=== PATIENT | female | born 2000 | race Caucasian/White ===

== ENCOUNTER 2025-03-05 21:43 | Emergency (ER) | payer OTHER, SELFPAY ==
[2025-03-05 21:44] VITALS: BP 124/75; PULSE 85; RESP 20; TEMP 36.9; O2SAT 100
--- OUTSIDE RECORDS SUMMARY | 2025-03-05 21:45 | XMS_ITS | Clinical Summary ---
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 screened with the use of an image guided system. Note Comment 08/29/2023 11:10 AM [employer]TER [facility] ([facility]) Comment: The HPV DNA reflex criteria were not met with this specimen result therefore, no HPV testing was performed. Pathology/Cytolo gy ENTIRE ENDOCERVIX / Unknown Collection / Unknown 08/26/2023 2:55 PM [employer]TER 08/26/2023 3:02 PM [employer]TER Narrative [facility] ([facility]) - 08/29/2023 11:10 AM [employer]TER Performed at: [address] [place] [address] [id number] Bonding Equipment Operator: Idalia Reddy MD, Phone: [phone] Specimen Comment: No. of containers..01 ThinPrep Vial Lyudmila Boudreaux MD LAB - PATHOLOGY/CYTOLOGY ORDERA BLES Final Result [facility] ([facility]) [address] [place] [phone] from Last 3 Months or Most Recently Relevant to Health Maintenance [facility]
[2025-03-05 22:25] LABS: Add Urine Microscopic? YES; Appearance Urine Clear (Clear); Glucose Urine UA Negative (Negative); Leukocyte Esterase Ur Trace LEU/UL (Negative); Nitrate Urine Negative (Negative); Non Pathogenic Casts 0-2; Specific Grav Ur 1.003 (1.001-1.035)
--- OUTSIDE RECORDS SUMMARY | 2025-03-05 23:52 | XMS_ITS | Clinical Summary ---
Author Organization [facility] Address [address] [place] [address] Care Team Providers Care Belt Splicer Name Role Phone Unavailable Primary Care Provider Unavailabl e Source Comments [facility],non-owned Affiliates and Associated Physician Practices is amultiple site organization consisting of ambulatory clinics and hospital sitesin [place], [place], [place] and [place]. This disclosure is being madepursuant to the Care Everywhere program and may not contain all information available regarding this patient. Last updated 18.[facility] Allergies Active Allergy Reactions Criticality Noted Date [...] migh t be different from the original. [employer] form completed. Diapers given. 03/02/2025 [...] - 03/02/2025 11:59 PM CDT Hospital Encounter [facility] MATERNAL/ EVALUATION UNIT [address] [place] [address] Bev Blevins, ENTRY LEVEL PROJECT ENGINEER-JAVA PROGRAMMER Discharge Disposition: Home or Self Care 03/02/2025 Travel 02/15/2025 Patient Outreach [facility] [address] [place] [address] Socorro Ivey RN Care Management Other (Called pt to follow up on resources sent for SDIA needs. Pt states she moved into a new place a week ago. Stable housing and all bills are current. Has SNAP and WIC and denies food insecurity. Get transportation from her [id number]. Looking for a second vehicle. Denies increased stress level. Says things are going well overall. Has gotten a car seat through her insurance and another one from a family member that converts into a stroller. Still looking for a crib. Denies needing any addition) 02/02/2025 12:41 PM CDT - 02/02/2025 11:59 PM CDT Hospital Encounter [facility] MATERNAL/ EVALUATION UNIT [facility] [address] [place] [address] Kael Mcmanus MD Discharge Disposition: Home or Self Care 02/02/2025 12:41 PM CDT - 02/02/2025 11:59 PM CDT Hospital Encounter [facility] MATERNAL/ EVALUATION UNIT [facility] [address] [place] [address] Bev Blevins APRN-CNP Discharge Disposition: Home or Self Care 02/02/2025 Travel 01/05/2025 12:28 PM CDT - 01/05/2025 11:59 PM CDT Hospital Encounter [facility] MATERNAL/ EVALUATION UNIT [facility] [address] [place] [address] Bev Blevins APRN-CNP Discharge Disposition: Home or Self Care 01/05/2025 12:25 PM CDT - 01/05/2025 12:27 PM CDT Hospital Encounter [facility] MATERNAL/ EVALUATION UNIT [facility] [address] [place] [address] Bev Blevins, ENTRY LEVEL PROJECT ENGINEER-JAVA PROGRAMMER Obi Tello MD Discharge Disposition: Home or Self Care 01/05/2025 Travel 12/15/2024 12:34 PM CDT - 12/15/2024 11:59 PM CDT Hospital Encounter [facility] MATERNAL/ EVALUATION UNIT [address] [place] [address] Alexandrea Lewis MD Discharge Disposition: Home or Self Care 12/15/2024 Patient Outreach [facility] MATERNAL/ EVALUATION UNIT [address] [place] [address] Hali Holm, RN Care Management Other (Spoke w/Nehemias @ her 16.3 week to follow up on the resources/referrals provided by the [facility] team. She received the information & [...] time but will reach out to the [facility] team for any changes.) 12/15/2024 Travel [...] Recorded Patient Health Questionnaire-2 Score 5 12/11/2023 [facility] [place] [facility] Occupat ional Health - Occupational Stress [...] things needed for daily living? Yes 03/02/2025 [place] Depression Scale Answer Date Recorded [place] Depression Scale Total 0 10/20/2024 The thought [...] any time in the past 12 m [facility], were you homeless or living in a snf (including now)? No 03/02/2025 Estimated Date of Delivery Comme nts Yes 05/29/2025 Based on last me nstrual period of 08/22/2024 Sex and Gender Information Value Date Recorded Sex Assigned at Female 08/28/2023 2:40 AM WAX ROOM SUPERVISOR Legal Sex Female 9:16 AM WAX ROOM SUPERVISOR Gender Identity Female 08/28/2023 2:40 AM WAX ROOM SUPERVISOR Sexual Orientation Bisexual 08/28/2023 2: 40 AM WAX ROOM SUPERVISOR Last Filed Vital Signs Vital Sign Reading Time Taken Comments Blood Pressure 145/88 03/02/2025 12:43 PM CDT Pulse 73 03/02/2025 12:43 PM CDT Temperature 36.6 C (97.9 F) 10/06/2024 12:15 PM WAX ROOM SUPERVISOR Respiratory Rate 16 02/02/2025 12:48 PM CDT Oxygen Saturation 97% 10/06/2024 12:15 PM WAX ROOM SUPERVISOR Inhaled Oxygen Concentration - - Weight 62.2 kg (137 lb 3.2 oz) 03/02/2025 12:35 PM CDT Height 167.6 cm (5' 6) 07/01/2024 9:24 AM WAX ROOM SUPERVISOR Body Mass Index 22.14 07/01/2024 9:24 AM WAX ROOM SUPERVISOR Plan of Treatment Upcoming Encounters Date Type Department Care Team (Late st Contact Info) Description 03/16/2025 1:00 PM CDT Appointment [facility] MATERNAL/ EVALUATION UNIT [address] [place] [address]. [address] [place] [address] 03/22/2025 10:40 AM CDT Appointment [facility] [address] [place] [address] [address] [place] [address] 03/29/2025 10:40 AM CDT Appointment [facility] [address] [place] [address] [address] [place] [address] 04/05/2025 10:40 AM CDT Appointment [facility] [address] [place] [address] Health Maintenance Due Date Last Done Comments [...] HPV APTIMA ASCU Routine 08/26/2023 2:55 PM WAX ROOM SUPERVISOR Well woman exam with routine gynecological exam from Last 3 Months or Most Recently Relevant to Health Maintenance Results * PROTEIN CREATININE RATIO URINE RANDOM PNL (03/02/2025 1:09 PM CDT) Protein Urine <6.8 <11.9 mg/dL 03/02/2025 2:13 PM CDT [facility] Creatinine Urine 25.20 mg/dL 03/02/2025 2:13 PM CDT [facility] Protein/Creatin ine Ratio Urine 03/02/2025 2:13 PM CDT [facility] Comment:Unable to calculate due to limited levels of measurable protein. Urine URINE SPECIMEN OBTAINED BY CLEAN CATCH PROCEDURE / Unknown Collection / Unknown 03/02/2025 1:09 PM CDT 03/02/2025 1:47 PM CDT Result [facility] Bev Blevins APRN-JAVA PROGRAMMER LAB - URINE CHEMISTR Y ORDERABLES Final Result [facility] [address] [place] [address] * SYPHILIS ANTIBODY CASCADING REFLEX (03/02/2025 1:08 PM CDT) Treponema pallidum Antibody Non Reactive Non Reactive 03/02/2025 2:38 PM CDT [facility] Comment: No Laboratory evidence of syphilis infection. Note: Circulating antibodies may be low or undetectable in early infection. If recent exposure is suspected, re-draw sample in 2-4 weeks and repeat testing. Blood BLOOD SPECIMEN / Unknown Venipuncture / Unknown 03/02/2025 1:08 PM CDT 03/02/2025 1:41 PM CDT Bev Blevins APRN-JAVA PROGRAMMER LAB - SEROLOGY ORDER GA Final Result Performing Organization Address [facility]/ZIP Co de Phone Number [facility] [address] [place] [address] * HIV-1 HIV-2 ANTIBODY + HIV P24 AG PANEL (03/02/2025 1:08 PM CDT) [facility] HIV1/2 Ab + P24 Ag Non Reactive Non Reactive 03/02/2025 2:31 PM CDT [facility] Blood BLOOD SPECIMEN / Unknown Venipuncture / Unknown 03/02/2025 1:08 PM CDT 03/02/2025 1:41 PM CDT Narrative [facility] - 03/02/2025 2:31 PM CDT No Laboratory evidence of HIV infection. Bev Blevins APRN-[facility] LAB - CHEMISTRY ORDE RABLES Final Result Performing Organization Address [facility] Co de Phone Number [facility] [address] [place] [address] * (ABNORMAL) CBC W AUTO DIFFERENTIAL (03/02/2025 1:08 PM CDT) [facility] WBC 10.4 4.0 - 10.7 x10E9/L 03/02/2025 1:55 PM CDT [facility] RBC Count 3.31(L) 3.90 - 5.20 x10E12/L 03/02/2025 1:55 PM CDT [facility] Hemoglobin 9.9(L) 11.9 - 15.8 g/dL 03/02/2025 1:55 PM CDT [facility] Hematocrit 29.1(L) 34.8 - 46.1 % 03/02/2025 1:55 PM CDT [facility] MCV 87.9 80.0 - 98.0 fL 03/02/2025 1:55 PM CDT [facility] MCH 29.9 26.7 - 33.6 pg 03/02/2025 1:55 PM CDT [facility] MCHC 34.0 31.7 - 36.3 g/dL 03/02/2025 1:55 PM CDT [facility] RDW-CV 13.1 11.3 - 14.8 % 03/02/2025 1:55 PM CDT [facility] Platelet Count 250 150 - 420 x10E9/L 03/02/2025 1:55 PM CDT [facility] MPV 10.9 7.8 - 11.4 fL 03/02/2025 1:55 PM CDT [facility] Neutrophil % 76.7(H) 41.0 - 74.0 % 03/02/2025 1:55 PM CDT [facility] Lymphocyte % 15.5(L) 17.0 - 47.0 % 03/02/2025 1:55 PM CDT [facility] Monocyte % 6.2 3.0 - 11.0 % 03/02/2025 1:55 PM CDT [facility] Eosinophil % 0.3 0.0 - 7.0 % 03/02/2025 1:55 PM CDT [facility] Basophil % 0.2 0.0 - 1.6 % 03/02/2025 1:55 PM CDT [facility] Immature Granulocytes % 1.1(H) 0.0 - 1.0 % 03/02/2025 1:55 PM CDT [facility] Neutrophil Absolute 7.95(H) 1.60 - 7.50 x10E9/L 03/02/2025 1:55 PM CDT [facility] Lymphocyte Absolute 1.61 1.00 - 4.40 x10E9/L 03/02/2025 1:55 PM CDT [facility] Monocyte Absolute 0.64 0.15 - 1.00 x10E9/L 03/02/2025 1:55 PM CDT [facility] Eosinophil Absolute 0.03 0.00 - 0.60 x10E9/L 03/02/2025 1:55 PM CDT [facility] Basophil Absolute 0.02 0.00 - 0.13 x10E9/L 03/02/2025 1:55 PM CDT [facility] Blood BLOOD SPECIMEN / Unknown Venipuncture / Unknown 03/02/2025 1:08 PM CDT 03/02/2025 1:41 PM CDT Bev Blevins APRN-JAVA PROGRAMMER LAB - HEMATOLOGY ORD ERABLES Final Result [facility] [address] [place] [address] * (ABNORMAL) COMPREHENSIVE METABOLIC PANEL (03/02/2025 1:08 PM CDT) Glucose 87 70 - 99 mg/dL 03/02/2025 2:18 PM CDT [facility] Sodium 135(L) 136 - 145 mmol/L 03/02/2025 2:18 PM CDT [facility] Potassium 3.1(L) 3.5 - 5.1 mmol/L 03/02/2025 2:18 PM CDT [facility] Chloride 104 98 - 107 mmol/L 03/02/2025 2:18 PM CDT [facility] CO2 23 22 - 29 mmol/L 03/02/2025 2:18 PM CDT [facility] Calcium 9.5 8.4 - 10.4 mg/dL 03/02/2025 2:18 PM CDT [facility] Anion Gap 8 6 - 16 mmol/L 03/02/2025 2:18 PM CDT [facility] BUN 3(L) 5.3 - 18.7 mg/dL 03/02/2025 2:18 PM CDT [facility] Creatinine 0.65 0.57 - 1.11 mg/dL 03/02/2025 2:18 PM CDT [facility] Alkaline Phosphatase 70 40 - 150 U/L 03/02/2025 2:18 PM CDT [facility] ALT 8 6 - 57 U/L 03/02/2025 2:18 PM CDT [facility] AST 19 10 - 48 U/L 03/02/2025 2:18 PM CDT [facility] Protein Total 6.8 6.4 - 8.3 gm/dL 03/02/2025 2:18 PM CDT [facility] Albumin 3.4 3.1 - 4.5 gm/dL 03/02/2025 2:18 PM CDT [facility] Bilirubin Total 0.2 0.2 - 1.2 mg/dL 03/02/2025 2:18 PM CDT [facility] eGFR by CKD-EPI >90 >=90 mL/min/1.7 3 m2 03/02/2025 2:18 PM CDT [facility] Comment:Estimated Glomerular Filtration Rate (eGFR) calculated using the CKD-EPI Creatinine Equation (2020), per the National Kidney Foundation and [place] Society of Nephrology recommendations. Blood BLOOD SPECIMEN / Unknown Venipuncture / Unknown 03/02/2025 1:08 PM CDT 03/02/2025 1:41 PM CDT Bev JOHN LAB - CHEMISTRY ORDE RABLIZBETH Final Result Performing Organization Address City/[facility]/ZIP Co de Phone Number [facility] [address] [place] [address] * GLUCOSE CHALLENGE (03/02/2025 1:08 PM CDT) [facility] Glucose Challenge 87 64 - 140 mg/dL 03/02/2025 2:19 PM CDT [facility] Glucose Challenge Time 03/02/2025 2:19 PM CDT [facility] Blood BLOOD SPECIMEN / Unknown Venipuncture / Unknown 03/02/2025 1:08 PM CDT 03/02/2025 1:41 PM CDT Bev Blevins APRNJAVA PROGRAMMER LAB - CHEMISTRY ORDE RABLIZBETH Final Result Performing Organization Address [facility] Co de Phone Number [facility] [address] [place] [address] * (ABNORMAL) IRON + TRANSFERRIN PANEL (03/02/2025 1:08 PM CDT) [facility] Iron 47 40 - 150 ug/dL 03/02/2025 2:18 PM CDT [facility] Transferrin 403(H) 174 - 382 mg/dL 03/02/2025 2:18 PM CDT [facility] TIBC Calculated 504(H) 240 - 450 ug/dL 03/02/2025 2:18 PM CDT [facility] Iron Saturation % 9(L) 20 - 50 % 03/02/2025 2:18 PM CDT [facility] Blood BLOOD SPECIMEN / Unknown Venipuncture / Unknown 03/02/2025 1:08 PM CDT 03/02/2025 1:41 PM CDT us Bev Blevins APRN-JAVA PROGRAMMER LAB - CHEMISTRY ORDE RABLES Final Result [facility] [address] [place] [address] * FERRITIN (03/02/2025 1:08 PM CDT) Pathologist [facility] Ferritin 12 5 - 204 ng/mL 03/02/2025 2:32 PM CDT [facility] Blood BLOOD SPECIMEN / Unknown Venipuncture / Unknown 03/02/2025 1:08 PM CDT 03/02/2025 1:41 PM CDT Bev Blevins APRN-JAVA PROGRAMMER LAB - CHEMISTRY ORDE RABLIZBETH Final Result Performing Organization Address [facility] Co de Phone Number [facility] [address] [place] [address] * (ABNORMAL) URINALYSIS - POCT (IP) BEAKER INTERFACE (03/02/2025 12:45 PM CDT) Pathologist [facility] Color UA POCT Yellow Straw, Yellow, Dark Yellow, Light Yellow 03/02/2025 12:48 PM CDT [facility] Clarity UA POCT Clear Clear 12:48 PM CDT [facility] Specific [place] UA POCT 1.010 1.005 - 1.030 03/02/2025 12:48 PM CDT [facility] pH UA POCT 6.5 5.0 - 8.0 pH 03/02/2025 12:48 PM CDT [facility] Protein UA POCT Negative Negative 12:48 PM CDT [facility] Blood UA POCT Negative Negative 03/02/2025 12:48 PM CDT [facility] Leukocyte UA POCT Trace(A) Negative 03/02/2025 12:48 PM CDT [facility] Nitrite UA POCT Negative Negative 12:48 PM CDT [facility] Glucose UA POCT Negative Negative 07/22/202 5 12:48 PM CDT [facility] Ketone UA POCT Negative Negative 03/02/2025 12:48 PM CDT [facility] Bilirubin UA POCT Negative Negative 03/02/2025 12:48 PM CDT [facility] Urobilinogen UA POCT 0.2 0.1 - 1.0 EU/dL 03/02/2025 12:48 PM CDT [facility] Urine URINE / Unknown 03/02/2025 1 2:45 PM CDT 03/02/2025 12:48 PM CDT us Bev Blevins ENTRY LEVEL PROJECT ENGINEER-JAVA PROGRAMMER LAB - POINT OF CARE ORDERABLES Final Result [facility] [address] [place] [address] * Sonogram - Complete (02/02/2025 1:10 PM [...] 1 lb 5 oz EFW by Hadlock ([id number]) appropriate Growth Overview Exam date [place] BPD [...] Thorax 4-chamber view. RVOT view. 3-vessel view. 8-xnmfnc-inexxil view. Situs. Aortic arch view. Bicaval view. [...] ultrasound as clinically indicated. Coding ====== Procedures 89312: [facility] Anatomical Region Laterality Modality Other 02/02/2025 1:10 PM CDT Kael Mcmanus MD [facility] ORDERABLES Edited Result - Final * CHLAMYDIA AND N. GONORRHOEAE MALCOLM (10/20/2024 3:21 PM CDT) Chlamydia by MALCOLM NEGATIVE NEGATIVE 10/21/2024 1:38 PM CDT [facility] Neisseria gonorrhoeae MALCOLM NEGATIVE NEGATIVE 10/21/2024 1:38 PM CDT [facility] Microbiology ENTIRE VAGINA / Unknown Collection / Unknown 10/20/2024 3:21 PM CDT 10/20/2024 3:35 PM CDT Alexandrea Lewis MD LAB - MICROBIOLOGY ORDERABLES Fi nal Result [facility] [address] [place] [phone] * HEPATITIS C ANTIBODY (10/20/2024 3:21 PM CDT) HCV Antibody Screen Non Reactive Non Reactive 10/20/2024 4:35 PM CDT [facility] Blood BLOOD SPECIMEN / Unknown Venipuncture / Unknown 10/20/2024 3:21 PM CDT 10/20/2024 3:39 PM CDT Narrative [facility] - 10/20/2024 4:35 PM CDT Non Reactive - Antibodies to Hepatitis C virus (HCV) were not detected, result does not exclude early acute HCV infection. us Alexandrea Lewis MD LAB - CHEMISTRY ORDERABLES Final Result [facility] [address] [place] [address] * PAP IG LB RFLX HPV APTIMA ASCU (08/26/2023 2:55 PM WAX ROOM SUPERVISOR) Diagnosis Comment 08/29/2023 11:10 AM WAX ROOM SUPERVISOR [facility] ([facility]) Comment:NEGATIVE FOR INTRAEP ITHELIAL LESION OR MALIGNANCY. Specimen Adequacy Comment 024 11:10 AM WAX ROOM SUPERVISOR [facility] ([facility]) Comment: Satisfactory for evaluation. Endocervical and/or squamous metaplastic cells (endocervical component) are present. Performed by Comment 08/29/2023 11:10 AM WAX ROOM SUPERVISOR [facility] ([facility]) Comment:Mayela Olsen, Cytote chnologist (ASCP) Comment . 08/29/2023 11:10 AM WAX ROOM SUPERVISOR [facility] ([facility]) Note Comment 08/29/2023 11:10 AM WAX ROOM SUPERVISOR [facility] ([facility]) Comment: The Pap smear is a screening test designed to aid in the detection of premalignant and malignant conditions of the uterine cervix. It is not a diagnostic procedure and should not be used as the sole means of detecting cervical cancer. Both false-positive and false-negative reports do occur. IGLBP CPT Code Automation Comment 08/29/2023 11:10 AM WAX ROOM SUPERVISOR [facility] ([facility]) Comment: This liquid based ThinPrep(R) pap test was screened with the use of an image guided system. Note Comment 08/29/2023 11:10 AM WAX ROOM SUPERVISOR [facility] ([facility]) Comment: The HPV DNA reflex criteria were not met with this specimen result therefore, no HPV testing was performed. Pathology/Cytolo gy ENTIRE ENDOCERVIX / Unknown Collection / Unknown 08/26/2023 2:55 PM WAX ROOM SUPERVISOR 08/26/2023 3:02 PM WAX ROOM SUPERVISOR Narrative [facility] ([facility]) - 08/29/2023 11:10 AM WAX ROOM SUPERVISOR Performed at: [address] [place] [id number] Software Build Engineer: Idalia Reddy MD, Phone: [phone] Specimen Comment: No. of containers..01 ThinPrep Vial Lyudmila Boudreaux MD LAB - PATHOLOGY/CYTOLOGY ORDERA BLES Final Result [facility] ([facility]) [address] [place] [address] from Last 3 Months or Most Recently Relevant to Health Maintenance Insurance [facility]
== END 2025-03-05 23:46 | disposition left against medical advice (07) ==
LOC: ANHED 23:50
PROVIDERS: Emergency Provider Student in an Organized Health Care Education/Training Program
DX: R30.0 Dysuria (principal)
CPT/HCPCS: 81001; 99199